=== PATIENT | male | born 1945 | race African-American/Black ===

== ENCOUNTER 2018-09-24 15:08 | Inpatient (IN) | payer MEDICARE, MEDICAID ==
[~2018-09-24] VITALS: Ht 182.9 cm; Wt 93.0 kg
[~2018-09-24 15:08] MED LIST: BUPR300T54 PO; CRES10 PO; GABA-529 PO; HYDR12.54 PO; INSU100C11 SQ; INSU3INS8 SQ; LORA-249 PO; LOSA50TA41 PO; METF-416 PO; TAMS-11 PO
[2018-09-24 16:54] LABS: BASOPHILS % 0.8 % (0.0-2.0); CHLORIDE 98 mEq/L (98-107); EOSINOPHILS % 4.8 % (0.0-5.0); HEMATOCRIT. 38.2 % (42.0-52.0); LYMPHOCYTES % 14.1 % (20.0-50.0); MEAN CORPUSCULAR HEMOGLOBIN 29.5 pg (28.0-32.0); MEAN CORPUSCULAR VOLUME 86.3 fL (80.0-94.0); MEAN PLATELET VOLUME 6.8 fl (7.4-10.4); MONOCYTES % 10.1 % (2.0-8.0); NEUTROPHILS % 70.2 % (40.0-76.0); PLATELET 328 x1000/uL (130-400); RED BLOOD CELL COUNT 4.43 mill/uL (4.7-6.1); RED CELL DISTRIBUTION WIDTH 14.3 % (11.6-14.6)
[2018-09-24 16:58] LABS: D-DIMER 1.17 mg/L FEU (<0.50); PARTIAL THROMBOPLASTIN TIME 32.6 sec (23.4-31.0)
[2018-09-24] MEDS ORDERED: ASPIRIN 81MG TABLET PO ONE (17:00)
[2018-09-24] MEDS ORDERED: POTASSIUM CHLORIDE 20MEQ TABLET SR PO ONE (17:15)
[2018-09-24] MEDS ORDERED: LEVOFLOXACIN 750MG PREMIX 150 ML IV ONE (18:30)
[2018-09-24] MEDS ORDERED: SODIUM CHLORIDE 0.9% 1000ML BAG (SEPSIS BOLUS) IV ONE (18:30)
[2018-09-24] MEDS ORDERED: IOHEXOL-350 100 ML BOTTLE ONE (19:41)
[2018-09-24] MEDS ORDERED: ZOLPIDEM TARTRATE 5MG TABLET PO PRN (19:45)
[2018-09-24] MEDS ORDERED: MORPHINE SULFATE 2 MG/ML CPJ (NOT FOR IM USE) IV PRN (19:45)
[2018-09-24] MEDS ORDERED: CLONIDINE 0.1MG TABLET PO PRN (19:45)
[2018-09-24] MEDS ORDERED: IPRATROPIUM/ALBUTEROL 0.5-3(2.5)MG/3ML NEB INH PRN (19:45)
[2018-09-24] MEDS ORDERED: ACETAMINOPHEN 325MG TABLET PO PRN (19:45)
[2018-09-24] MEDS ORDERED: NITROGLYCERIN 0.4MG TABLET SL SL PRN (19:45)
[2018-09-24] MEDS ORDERED: TRAMADOL 50MG TABLET PO PRN (19:45)
[2018-09-24] MEDS ORDERED: AZITHROMYCIN 500 MG in DEXT 5% WATER 250 ML IV SCH (19:45)
[2018-09-24] MEDS ORDERED: DOCUSATE SODIUM 100MG CAPSULE PO PRN (19:45)
[2018-09-24] MEDS ORDERED: DEXTROSE 50% WATER 50ML SYRINGE IV PRN (19:45)
[2018-09-24] MEDS ORDERED: MAGNESIUM/ALUMINUM HYDROXIDE/SIMETHICONE 30ML UDC PO PRN (19:45)
[2018-09-24] MEDS ORDERED: ONDANSETRON HCL 4MG/2ML INJ IV PRN (19:45)
[2018-09-24] MEDS ORDERED: GUAIFENESIN 200MG/10ML SUGAR FREE UDC PO PRN (19:45)
[2018-09-24 20:01] LABS: CLARITY URINE CLEAR (CLEAR); COLOR URINE YELLOW (YELLOW); KETONES URINE NEGATIVE (NEGATIVE); LEUKOCYTE ESTERASE URINE NEGATIVE (NEGATIVE); NITRITE URINE NEGATIVE (NEGATIVE); OCCULT BLOOD URINE NEGATIVE (NEGATIVE); PROTEIN URINE NEGATIVE (NEGATIVE); SPECIFIC GRAVITY URINE 1.067 (1.005-1.030)
[2018-09-24 20:14] LABS: T4 FREE 1.09 ng/dL (0.76-1.46)
[2018-09-24 20:27] LABS: *AMPHETAMINES SCREEN URINE NEGATIVE (NEGATIVE); *BARBITURATES SCREEN URINE NEGATIVE (NEGATIVE); *BENZODIAZEPINES SCREEN URINE NEGATIVE (NEGATIVE); *COCAINE SCREEN URINE NEGATIVE (NEGATIVE); CANNABINOID URINE SCREEN NEGATIVE (NEGATIVE); METHADONE URINE SCREEN NEGATIVE (NEGATIVE); OPIATES URINE SCREEN PRESUMTIVE POSITIVE (NEGATIVE); PHENCYCLIDINE URINE SCREEN NEGATIVE (NEGATIVE)
[2018-09-24 20:30] LABS: FOLIC ACID (FOLATE) SERUM > 20.00 ng/mL (>5.38)
[2018-09-24 20:38] LABS: VITAMIN B12 SERUM 511 pg/mL (211-911)
[2018-09-24] MEDS: INSULIN LISPRO 100 UNITS/ML SUBCUT SCH (22:17)
[2018-09-24 23:17] VITALS: BP 145/89
[2018-09-24] MEDS ORDERED: DOCU-150 PO (23:57)
[2018-09-24] MEDS ORDERED: OMEP10CA5 PO (23:57)
[2018-09-24] MEDS ORDERED: SITA1TAB2 PO (23:57)
[2018-09-24] MEDS ORDERED: RANI150T7 PO (23:57)
[2018-09-24] MEDS ORDERED: FOLI-43 PO (23:57)
[2018-09-24] MEDS ORDERED: DONE10TA43 PO (23:57)
[2018-09-24] MEDS ORDERED: CLOP75TA33 PO (23:57)
[2018-09-24] MEDS ORDERED: MEMA5TAB15 PO (23:57)
[2018-09-24] MEDS ORDERED: ASPI-1393 PO (23:57)
[2018-09-24] MEDS ORDERED: HYDR25TA PO (23:57)
[2018-09-24] MEDS ORDERED: TIZA2TAB4 PO (23:57)
[2018-09-24 23:58] LABS: CREATINE KINASE 54 IU/L (39-308)
[2018-09-24 23:59] LABS: CREATINE KINASE MB FRACTION < 1.0 ng/mL (0.5-3.6)
[2018-09-25] VITALS: BP 135/90
[2018-09-25] MEDS: GUAIFENESIN/DM 600MG/30MG ER TAB 12HR PO SCH ×3 (00:25→20:53)
[2018-09-25] MEDS: ASCORBIC ACID 500 MG TABLET PO SCH ×3 (00:25→20:53)
[2018-09-25] MEDS: METOPROLOL TARTRATE 25MG TABLET PO SCH ×3 (00:25→20:56)
[2018-09-25] MEDS: AZITHROMYCIN 500 MG in DEXT 5% WATER 250 ML IV SCH (00:25)
[2018-09-25] MEDS ORDERED: KCL 20MEQ/100ML PREMIX 100 ML IV NR (01:00)
[2018-09-25 04:00] VITALS: BP 135/79
[2018-09-25] MEDS: SUCRALFATE 1 G/10 ML UDC PO SCH ×4 (06:22→20:52)
[2018-09-25] MEDS: BLOOD SUGAR DIAGNOSTIC STRIP TEST SCH ×4 (06:23→20:56)
[2018-09-25] MEDS: INSULIN LISPRO 100 UNITS/ML SUBCUT SCH ×4 (06:23→20:55)
[2018-09-25 07:38] LABS: CHLORIDE 101 mEq/L (98-107)
[2018-09-25 08:01] LABS: CREATINE KINASE 56 IU/L (39-308)
[2018-09-25 08:03] LABS: CREATINE KINASE MB FRACTION 1.2 ng/mL (0.5-3.6)
[2018-09-25] MEDS ORDERED: CEFTRIAXONE 1 G PREMIX 50 ML IV SCH (09:00)
[2018-09-25] MEDS: CEFTRIAXONE 1 G PREMIX 50 ML IV SCH (09:36)
[2018-09-25] MEDS: ENOXAPARIN 30MG/0.3ML SYR SUBCUT SCH ×2 (09:37→20:53)
[2018-09-25] MEDS: FAMOTIDINE 20MG TABLET PO SCH ×2 (09:37→20:53)
[2018-09-25] MEDS: ASPIRIN 325MG EC TABLET PO SCH (09:38)
[2018-09-25] MEDS: TAMSULOSIN HCL 0.4MG SR CAPSULE PO SCH (09:38)
[2018-09-25] MEDS: ZINC SULFATE 220 MG ( 50 ) CAPSULE PO SCH (09:38)
[2018-09-25] MEDS: LOSARTAN POTASSIUM 50 MG TABLET PO SCH (09:38)
[2018-09-25 12:00] VITALS: BP 101/65
[2018-09-25 16:00] VITALS: BP 95/60
[2018-09-25 20:00] VITALS: BP 103/64
[2018-09-25] MEDS: GABAPENTIN 100MG CAPSULE PO SCH (20:54)
[2018-09-26] VITALS: BP 126/62
[2018-09-26] MEDS: AZITHROMYCIN 500 MG in DEXT 5% WATER 250 ML IV SCH (00:36)
[2018-09-26 04:00] VITALS: BP 158/65
[2018-09-26] MEDS: BLOOD SUGAR DIAGNOSTIC STRIP TEST SCH ×4 (06:06→21:19)
[2018-09-26] MEDS: SUCRALFATE 1 G/10 ML UDC PO SCH ×4 (06:06→21:19)
[2018-09-26] MEDS: INSULIN LISPRO 100 UNITS/ML SUBCUT SCH ×4 (06:19→21:29)
[2018-09-26 07:31] LABS: BASOPHILS % 1.3 % (0.0-2.0); EOSINOPHILS % 3.2 % (0.0-5.0); HEMATOCRIT. 37.3 % (42.0-52.0); HEMOGLOBIN. 12.8 g/dL (14.0-18.0); LYMPHOCYTES % 9.9 % (20.0-50.0); MEAN CORPUSCULAR HEMOGLOBIN 29.6 pg (28.0-32.0); MEAN CORPUSCULAR VOLUME 86.1 fL (80.0-94.0); MEAN PLATELET VOLUME 6.9 fl (7.4-10.4); MONOCYTES % 6.2 % (2.0-8.0); NEUTROPHILS % 79.4 % (40.0-76.0); PLATELET 326 x1000/uL (130-400); RED BLOOD CELL COUNT 4.33 mill/uL (4.7-6.1)
[2018-09-26 07:40] LABS: CHLORIDE 103 mEq/L (98-107)
[2018-09-26 07:51] LABS: LDL CHOLESTEROL 59 mg/dL (5-100)
[2018-09-26 07:52] LABS: HDL CHOLESTEROL 44 mg/dL (40-59)
[2018-09-26 08:00] VITALS: BP 124/70
[2018-09-26] MEDS: CLOPIDOGREL 75MG TABLET PO SCH (09:25)
[2018-09-26] MEDS: ASCORBIC ACID 500 MG TABLET PO SCH ×2 (09:26→21:19)
[2018-09-26] MEDS: GABAPENTIN 100MG CAPSULE PO SCH ×2 (09:26→16:30)
[2018-09-26] MEDS: ZINC SULFATE 220 MG ( 50 ) CAPSULE PO SCH (09:26)
[2018-09-26] MEDS: FAMOTIDINE 20MG TABLET PO SCH ×2 (09:26→21:19)
[2018-09-26] MEDS: TAMSULOSIN HCL 0.4MG SR CAPSULE PO SCH (09:27)
[2018-09-26] MEDS: METOPROLOL TARTRATE 25MG TABLET PO SCH ×2 (09:27→21:30)
[2018-09-26] MEDS: LOSARTAN POTASSIUM 50 MG TABLET PO SCH (09:27)
[2018-09-26] MEDS: ASPIRIN 325MG EC TABLET PO SCH (09:27)
[2018-09-26] MEDS: CEFTRIAXONE 1 G PREMIX 50 ML IV SCH (09:29)
[2018-09-26] MEDS: ENOXAPARIN 30MG/0.3ML SYR SUBCUT SCH ×2 (09:29→21:19)
[2018-09-26] MEDS: GUAIFENESIN/DM 600MG/30MG ER TAB 12HR PO SCH ×2 (10:18→21:19)
[2018-09-26 12:00] VITALS: BP 109/73
[2018-09-26] MEDS ORDERED: POTASSIUM CHLORIDE 20MEQ TABLET SR PO NR (15:45)
[2018-09-26 16:00] VITALS: BP 118/74
[2018-09-26 20:00] VITALS: BP 121/64
[2018-09-27] MEDS: AZITHROMYCIN 500 MG in DEXT 5% WATER 250 ML IV SCH (04:37)
[2018-09-27] MEDS: BLOOD SUGAR DIAGNOSTIC STRIP TEST SCH ×2 (05:30→11:45)
[2018-09-27] MEDS: SUCRALFATE 1 G/10 ML UDC PO SCH ×2 (05:30→14:05)
[2018-09-27] MEDS: INSULIN LISPRO 100 UNITS/ML SUBCUT SCH ×2 (05:39→14:02)
[2018-09-27 06:15] LABS: BASOPHILS % 1.2 % (0.0-2.0); EOSINOPHILS % 3.4 % (0.0-5.0); HEMATOCRIT. 35.4 % (42.0-52.0); HEMOGLOBIN. 12.1 g/dL (14.0-18.0); MEAN CORPUSCULAR HEMOGLOBIN 29.4 pg (28.0-32.0); MEAN CORPUSCULAR VOLUME 86.1 fL (80.0-94.0); MEAN PLATELET VOLUME 6.8 fl (7.4-10.4); MONOCYTES % 7.1 % (2.0-8.0); NEUTROPHILS % 78.3 % (40.0-76.0); PLATELET 326 x1000/uL (130-400); RED BLOOD CELL COUNT 4.12 mill/uL (4.7-6.1); RED CELL DISTRIBUTION WIDTH 13.9 % (11.6-14.6)
[2018-09-27 06:23] LABS: CHLORIDE 105 mEq/L (98-107)
[2018-09-27 08:00] VITALS: BP 110/67
[2018-09-27] MEDS: ZINC SULFATE 220 MG ( 50 ) CAPSULE PO SCH (08:06)
[2018-09-27] MEDS: CLOPIDOGREL 75MG TABLET PO SCH (08:07)
[2018-09-27] MEDS: METOPROLOL TARTRATE 25MG TABLET PO SCH (08:07)
[2018-09-27] MEDS: LOSARTAN POTASSIUM 50 MG TABLET PO SCH (08:07)
[2018-09-27] MEDS: TAMSULOSIN HCL 0.4MG SR CAPSULE PO SCH (08:07)
[2018-09-27] MEDS: ASCORBIC ACID 500 MG TABLET PO SCH (08:07)
[2018-09-27] MEDS: ASPIRIN 325MG EC TABLET PO SCH (08:07)
[2018-09-27] MEDS: GUAIFENESIN/DM 600MG/30MG ER TAB 12HR PO SCH (08:08)
[2018-09-27] MEDS: GABAPENTIN 100MG CAPSULE PO SCH (08:08)
[2018-09-27] MEDS: CEFTRIAXONE 1 G PREMIX 50 ML IV SCH (08:09)
[2018-09-27] MEDS: ENOXAPARIN 30MG/0.3ML SYR SUBCUT SCH (08:09)
[2018-09-27] MEDS: FAMOTIDINE 20MG TABLET PO SCH (08:13)
[2018-09-27] MEDS ORDERED: REGADENOSON 0.4 MG/5 ML IV NR (10:15)
[2018-09-27] MEDS ORDERED: REGADENOSON 0.4 MG/5 ML IV ONE (12:04)
[2018-09-27 14:55] VITALS: BP 110/67
== END 2018-09-27 21:15 | disposition home health service (06) | DRG 194 ==
LOC: ER 15:08 → 5WST 19:25 → SUPCPDRO 19:31 → EDBEDREQ 19:35 → EDBEDREQTM 19:35 → ENRESERV 21:12
PROVIDERS: ADMIT Internal Medicine; ATTEND Internal Medicine
DX: J18.9 Pneumonia, unspecified organism (principal); I31.3 Pericardial effusion (noninflammatory); E44.1 Mild protein-calorie malnutrition; J44.0 Chronic obstructive pulmonary disease with (acute) lower respiratory infection; R07.89 Other chest pain; G90.8 Other disorders of autonomic nervous system; I11.9 Hypertensive heart disease without heart failure; E11.65 Type 2 diabetes mellitus with hyperglycemia; E87.6 Hypokalemia; D63.8 Anemia in other chronic diseases classified elsewhere; E78.5 Hyperlipidemia, unspecified; F17.210 Nicotine dependence, cigarettes, uncomplicated; I25.10 Atherosclerotic heart disease of native coronary artery without angina pectoris; E78.00 Pure hypercholesterolemia, unspecified; W18.30XA Fall on same level, unspecified, initial encounter; N40.0 Benign prostatic hyperplasia without lower urinary tract symptoms; Z79.4 Long term (current) use of insulin; Z79.899 Other long term (current) drug therapy; Y93.89 Activity, other specified; Y92.89 Other specified places as the place of occurrence of the external cause; Z95.5 Presence of coronary angioplasty implant and graft; Z85.46 Personal history of malignant neoplasm of prostate; Y99.8 Other external cause status; Z68.27 Body mass index [BMI] 27.0-27.9, adult
CPT/HCPCS: 36415; 71045; 71275; 78452; 80061; 80305; 82550; 82553; 82607; 82746; 82962; 83036; 83540; 83550; 83605; 83735; 83880; 84439; 84443; 84484; 85379; 93005; 93017; 93306; 93970; 97162; 99285; A9500; J0456; J0696; J1650; J1815; J1956; J2785; J3480; J7030; J7060; Q9967